=== PATIENT | male | born 1975 | race Asian ===

== ENCOUNTER 2019-05-27 15:14 | Emergency (ER) | payer SELFPAY ==
[~2019-05-27] VITALS: Ht 172.7 cm; Wt 87.7 kg
[~2019-05-27 15:14] MED LIST: ACET-784 PO
[2019-05-27 15:55] VITALS: BP 130/82
[2019-05-27] MEDS ORDERED: KETOROLAC TROMETHAMINE 60 MG/2 ML VIAL IM ONE (16:30)
[2019-05-27] MEDS ORDERED: DEXAMETHASONE SOD PHOS 4 MG/ML 5 ML VIAL IM ONE (16:30)
[2019-05-27] MEDS ORDERED: PENICILLIN G BENZATHINE LA 1,200,000 UNITS/2 ML SYRINGE IM ONE (16:30)
== END 2019-05-27 17:31 | disposition home or self-care (01) ==
LOC: EMS 15:16
DX: J02.9 Acute pharyngitis, unspecified (principal)
CPT/HCPCS: 96372; 99283; J0561; J1100; J1885

== ENCOUNTER → 2019-07-09 | Outpatient (CLI) | payer BC | END | disposition home or self-care (01) | LOC: PUC 17:11 | PROVIDERS: ATTEND Internal Medicine | DX: M25.572 Pain in left ankle and joints of left foot (principal) ==